=== PATIENT | female | born 1980 | race Caucasian/White ===

== ENCOUNTER 2024-04-13 10:45 | Inpatient (IN) | payer MEDICAID ==
[~2024-04-13] VITALS: Ht 162.6 cm; Wt 63.6 kg
[2024-04-13 12:54] LABS: ALANINE AMINOTRANSFERASE 33 U/L (12-78); ALBUMIN 2.4 G/DL (3.4-5.0); ALBUMIN/GLOBULIN RATIO 0.5 (1.1-1.5); ALKALINE PHOSPHATASE 96 IU/L (46-116); ANION GAP 10 (8-16); ASPARTATE AMINO TRANSFERASE 31 U/L (10-37); BILIRUBIN,TOTAL 0.5 MG/DL (0.1-1.0); BLOOD UREA NITROGEN 50 MG/DL (7-18); CALCIUM 8.6 MG/DL (8.5-10.1); CHLORIDE 93 MMOL/L (99-107); GLUCOSE 110 MG/DL (70-104); LIPASE 43 U/L (16-77); SODIUM 130 MMOL/L (135-145); TOTAL CARBON DIOXIDE 27.2 MMOL/L (24-32); TOTAL PROTEIN 7.7 G/DL (6.4-8.2); eCRCL 25 ML/MIN; eGFR 21 ML/MIN
[2024-04-13 12:57] LABS: BASOPHILS # (AUTO) 0.1 X10'3 (0-0.2); BASOPHILS % (AUTO) 0.3 % (0-1); EOSINOPHILS # (AUTO) 0.1 X10'3 (0-0.9); EOSINOPHILS % (AUTO) 0.3 % (0-6); HEMATOCRIT 33.4 % (35.0-45.0); HEMOGLOBIN 11.3 g/dl (12.0-16.0); LYMPHOCYTES # (AUTO) 1.1 X10'3 (1.1-4.8); LYMPHOCYTES % (AUTO) 5.2 % (21-51); MEAN CORPUSCULAR HEMOGLOBIN 30.7 PG (27.0-31.0); MEAN CORPUSCULAR HGB CONC 33.8 g/dL (33.0-36.5); MEAN PLATELET VOLUME 11.4 FL (7.4-10.4); MONOCYTES # (AUTO) 1.2 X10'3 (0-0.9); MONOCYTES % (AUTO) 5.5 % (2-12); NEUTROPHILS % (AUTO) 88.7 % (42-75); PLATELET COUNT 320 X10'3 (140-440); RED BLOOD COUNT 3.67 X10'6 (4.20-5.60); RED CELL DISTRIBUTION WIDTH 15.5 % (11.5-14.5); WHITE BLOOD COUNT 21.4 X10'3 (4.5-11.0)
[2024-04-13 12:58] LABS: POTASSIUM 2.9 MMOL/L (3.5-5.1)
[2024-04-13 13:13] LABS: PLATELET ESTIMATE NORMAL; TOTAL CELLS COUNTED 100
[2024-04-13] MEDS: potassium Cl 20 mEq SR tablet PO STA (13:13)
[2024-04-13] MEDS: normal saline 1000ml 1,000 ML IV ONE ×2 (13:41→18:09)
[2024-04-13] MEDS: morphine 4 MG/ML inj SYRINge IV ONE (13:51)
[2024-04-13] MEDS: ondansetron/PF 4mg/2ml inj IV ONE (13:56)
[2024-04-13 14:55] LABS: BETA HCG,QUANTITATIVE < 1.0 mIU/ml
[2024-04-13 15:04] LABS: BILIRUBIN,URINE NEGATIVE (Neg); CLARITY,URINE SLIGHTLY CLOUDY (Clear); COLOR,URINE YELLOW (Yellow); GLUCOSE, URINE NEGATIVE (Neg); KETONES,URINE NEGATIVE (Neg); LEUKOCYTE ESTERASE ,URINE SMALL (Neg); NITRITES, URINE NEGATIVE (Neg); OCCULT BLOOD,URINE TRACE-INTACT (Neg); PROTEIN,URINE TRACE mg/dl (Neg); UROBILINOGEN,URINE 0.2 E.U/dL (0.2-1.0)
[2024-04-13 15:09] LABS: UA COLLECTION TYPE NON-SPECIFIED
[2024-04-13 15:24] LABS: SQUAMOUS EPITHELIAL CELL,UR MANY /LPF (FEW)
[2024-04-13 15:25] LABS: WBC,URINE 50-100 /HPF (0-4)
[2024-04-13 15:26] LABS: BACTERIA,URINE 1+ /HPF (Neg); TRANSITIONAL EPI CELLS,URINE FEW /HPF
[2024-04-13] MEDS: acetaminophen 325mg tablet PO ONE (17:50)
[2024-04-13] MEDS: CefTRIAXone 2gm/D5W 50ml BAG 50 ML IV ONE (17:53)
[2024-04-13 18:18] LABS: ALANINE AMINOTRANSFERASE 28 U/L (12-78); ALBUMIN 2.4 G/DL (3.4-5.0); ALBUMIN/GLOBULIN RATIO 0.5 (1.1-1.5); ALKALINE PHOSPHATASE 117 IU/L (46-116); ANION GAP 13 (8-16); ASPARTATE AMINO TRANSFERASE 29 U/L (10-37); BILIRUBIN,TOTAL 0.5 MG/DL (0.1-1.0); BLOOD UREA NITROGEN 43 MG/DL (7-18); BUN/CREATININE RATIO 20.5 (10.0-20.0); CALCIUM 8.4 MG/DL (8.5-10.1); CHLORIDE 96 MMOL/L (99-107); GLUCOSE 92 MG/DL (70-104); POTASSIUM 3.2 MMOL/L (3.5-5.1); SODIUM 133 MMOL/L (135-145); TOTAL CARBON DIOXIDE 24.4 MMOL/L (24-32); TOTAL PROTEIN 7.7 G/DL (6.4-8.2); eCRCL 29 ML/MIN; eGFR 25 ML/MIN
[2024-04-13] MEDS: HYDROmorphone 1 mg/ml syringe IV ONE (18:22)
[2024-04-13] MEDS ORDERED: mag hydrox/Alum hydrox/simeth 30ml oral suspension PO PRN (20:10)
[2024-04-13] MEDS ORDERED: magnesium sulf-water 4G/100mL 100 ML IV PRN (20:10)
[2024-04-13] MEDS ORDERED: magnesium hydroxide 30ml (MOM) UD suspension PO PRN (20:10)
[2024-04-13] MEDS ORDERED: magnesium sulf-water 2g/50mL 50 ML IV PRN (20:10)
[2024-04-13] MEDS ORDERED: potassium Cl 40MEQ/1/2NS 520ml 520 ML IV PRN (20:10)
[2024-04-13] MEDS ORDERED: magnesium Cl slow-release 64mg tablet PO PRN (20:10)
[2024-04-13] MEDS ORDERED: GABA-530 (22:17)
[2024-04-13] MEDS ORDERED: MECL-226 (22:17)
[2024-04-13] MEDS: potassium Cl 20 mEq SR tablet PO PRN (22:27)
[2024-04-13] MEDS: normal saline 1000ml 1,000 ML IV SCH (22:28)
[2024-04-13 22:30] VITALS: BP 97/52; PULSE 70; RESP 18; TEMP 98.1; O2SAT 97
[2024-04-13] MEDS: ondansetron/PF 4mg/2ml inj IV PRN (22:53)
[2024-04-13] MEDS ORDERED: GABA-530 PO (23:14)
[2024-04-13] MEDS ORDERED: MECL-231 PO (23:19)
[2024-04-14] MEDS: levoFLOXACIN-Levaquin 750MG/D5 150 ML IV SCH (04:32)
[2024-04-14 06:43] LABS: BASOPHILS # (AUTO) 0.1 X10'3 (0-0.2); BASOPHILS % (AUTO) 0.3 % (0-1); EOSINOPHILS # (AUTO) 0.1 X10'3 (0-0.9); EOSINOPHILS % (AUTO) 0.3 % (0-6); HEMATOCRIT 32.5 % (35.0-45.0); HEMOGLOBIN 10.5 g/dl (12.0-16.0); LYMPHOCYTES # (AUTO) 0.7 X10'3 (1.1-4.8); MEAN CORPUSCULAR HEMOGLOBIN 30.7 PG (27.0-31.0); MEAN CORPUSCULAR HGB CONC 32.4 g/dL (33.0-36.5); MEAN CORPUSCULAR VOLUME 94.8 FL (78-98); MEAN PLATELET VOLUME 10.7 FL (7.4-10.4); MONOCYTES # (AUTO) 0.9 X10'3 (0-0.9); MONOCYTES % (AUTO) 5.4 % (2-12); NEUTROPHILS # (AUTO) 15.7 X10'3 (1.8-7.7); PLATELET COUNT 343 X10'3 (140-440); RED BLOOD COUNT 3.43 X10'6 (4.20-5.60); RED CELL DISTRIBUTION WIDTH 15.7 % (11.5-14.5); WHITE BLOOD COUNT 17.4 X10'3 (4.5-11.0)
[2024-04-14 06:55] LABS: ALBUMIN 1.9 G/DL (3.4-5.0); ANION GAP 13 (8-16); BLOOD UREA NITROGEN 27 MG/DL (7-18); BUN/CREATININE RATIO 17.8 (10.0-20.0); CALCIUM 8.2 MG/DL (8.5-10.1); CHLORIDE 101 MMOL/L (99-107); CREATININE 1.52 MG/DL (0.40-0.90); GLUCOSE 132 MG/DL (70-104); SODIUM 132 MMOL/L (135-145); TOTAL CARBON DIOXIDE 18.3 MMOL/L (24-32); eCRCL 40 ML/MIN; eGFR 37 ML/MIN
[2024-04-14] MEDS: K and/or MAG REPLACEMENT MC SCH (07:38)
[2024-04-14] MEDS: docusate sod 100mg capsule PO SCH (08:00)
[2024-04-14] MEDS: enoxaparin 40mg/0.4ml syringe SUBCUT SCH (08:00)
[2024-04-14] MEDS: acetaminophen 325mg tablet PO PRN (09:25)
[2024-04-14 12:00] VITALS: BP_SYST 103; BP_SYST 80; BP_SYST 89; BP_DIAS 53; BP_DIAS 56; BP_DIAS 69; PULSE 107; PULSE 74; PULSE 78
[2024-04-14 18:00] VITALS: BP 118/78; PULSE 83; RESP 18; TEMP 99.3; O2SAT 98
[2024-04-14 20:00] VITALS: RESP 18; O2SAT 98
[2024-04-14 22:00] VITALS: BP 116/66; PULSE 75; RESP 13; TEMP 97.5; O2SAT 96
[2024-04-15 06:00] VITALS: BP 115/68; PULSE 96; RESP 16; TEMP 98.9; O2SAT 96
[2024-04-15 06:46] LABS: BASOPHILS # (AUTO) 0.1 X10'3 (0-0.2); BASOPHILS % (AUTO) 0.7 % (0-1); EOSINOPHILS # (AUTO) 0.1 X10'3 (0-0.9); EOSINOPHILS % (AUTO) 0.5 % (0-6); HEMATOCRIT 30.6 % (35.0-45.0); HEMOGLOBIN 10.3 g/dl (12.0-16.0); LYMPHOCYTES # (AUTO) 1.4 X10'3 (1.1-4.8); LYMPHOCYTES % (AUTO) 8.9 % (21-51); MEAN CORPUSCULAR HEMOGLOBIN 31.2 PG (27.0-31.0); MEAN CORPUSCULAR HGB CONC 33.6 g/dL (33.0-36.5); MEAN CORPUSCULAR VOLUME 92.7 FL (78-98); MONOCYTES # (AUTO) 0.8 X10'3 (0-0.9); MONOCYTES % (AUTO) 5.3 % (2-12); NEUTROPHILS # (AUTO) 13.1 X10'3 (1.8-7.7); NEUTROPHILS % (AUTO) 84.6 % (42-75); PLATELET COUNT 485 X10'3 (140-440); RED CELL DISTRIBUTION WIDTH 15.8 % (11.5-14.5); WHITE BLOOD COUNT 15.5 X10'3 (4.5-11.0)
[2024-04-15 06:52] LABS: ALBUMIN 1.8 G/DL (3.4-5.0); ANION GAP 11 (8-16); BLOOD UREA NITROGEN 10 MG/DL (7-18); BUN/CREATININE RATIO 10.3 (10.0-20.0); CALCIUM 8.1 MG/DL (8.5-10.1); CHLORIDE 105 MMOL/L (99-107); CREATININE 0.97 MG/DL (0.40-0.90); GLUCOSE 110 MG/DL (70-104); POTASSIUM 3.6 MMOL/L (3.5-5.1); SODIUM 138 MMOL/L (135-145); TOTAL CARBON DIOXIDE 21.7 MMOL/L (24-32); eCRCL 63 ML/MIN; eGFR 62 ML/MIN
[2024-04-15 08:00] VITALS: RESP 16; O2SAT 96
[2024-04-15 10:00] VITALS: BP 94/60; PULSE 80; RESP 14; TEMP 98.7; O2SAT 98
[2024-04-15 10:34] LABS: HBSAG SCREEN Negative (Negative); HEP B CORE AB, IGM Negative (Negative); HEP B CORE AB, TOT Negative (Negative)
[2024-04-15] MEDS ORDERED: HYDROcodone/acetaminophen 5mg/325mg tablet PO PRN (14:15)
[2024-04-15] MEDS: HYDROcodone/acetaminophen 10/325mg tab PO PRN (15:31)
[2024-04-15 18:00] VITALS: BP 121/75; PULSE 68; RESP 14; TEMP 98; O2SAT 94
[2024-04-15] MEDS: diatr meglu/diatrizoate 30ml oral sol.-(3 dose) bottle PO SCH (21:05)
[2024-04-15 22:00] VITALS: BP 125/76; PULSE 60; RESP 13; TEMP 98; O2SAT 97
[2024-04-16 06:00] VITALS: BP 98/59; PULSE 86; RESP 14; TEMP 98.9; O2SAT 94
[2024-04-16 06:26] LABS: ALANINE AMINOTRANSFERASE 13 U/L (12-78); ALBUMIN 1.8 G/DL (3.4-5.0); ALBUMIN/GLOBULIN RATIO 0.4 (1.1-1.5); ALKALINE PHOSPHATASE 86 IU/L (46-116); ANION GAP 8 (8-16); ASPARTATE AMINO TRANSFERASE 14 U/L (10-37); BILIRUBIN,TOTAL 0.4 MG/DL (0.1-1.0); BLOOD UREA NITROGEN 3 MG/DL (7-18); BUN/CREATININE RATIO 3.5 (10.0-20.0); CALCIUM 8.1 MG/DL (8.5-10.1); CHLORIDE 107 MMOL/L (99-107); CREATININE 0.85 MG/DL (0.40-0.90); GLUCOSE 145 MG/DL (70-104); SODIUM 139 MMOL/L (135-145); TOTAL CARBON DIOXIDE 23.6 MMOL/L (24-32); TOTAL PROTEIN 6.1 G/DL (6.4-8.2); eCRCL 72 ML/MIN; eGFR 72 ML/MIN
[2024-04-16 06:28] LABS: BASOPHILS # (AUTO) 0.1 X10'3 (0-0.2); BASOPHILS % (AUTO) 0.7 % (0-1); EOSINOPHILS # (AUTO) 0.1 X10'3 (0-0.9); EOSINOPHILS % (AUTO) 0.9 % (0-6); HEMATOCRIT 30.6 % (35.0-45.0); HEMOGLOBIN 10.3 g/dl (12.0-16.0); LYMPHOCYTES # (AUTO) 1.3 X10'3 (1.1-4.8); LYMPHOCYTES % (AUTO) 9.5 % (21-51); MEAN CORPUSCULAR HEMOGLOBIN 31.2 PG (27.0-31.0); MEAN CORPUSCULAR HGB CONC 33.7 g/dL (33.0-36.5); MEAN CORPUSCULAR VOLUME 92.9 FL (78-98); MEAN PLATELET VOLUME 9.8 FL (7.4-10.4); MONOCYTES # (AUTO) 0.8 X10'3 (0-0.9); MONOCYTES % (AUTO) 5.9 % (2-12); PLATELET COUNT 488 X10'3 (140-440); RED BLOOD COUNT 3.29 X10'6 (4.20-5.60); RED CELL DISTRIBUTION WIDTH 15.9 % (11.5-14.5); WHITE BLOOD COUNT 13.3 X10'3 (4.5-11.0)
[2024-04-16] MEDS: potassium Cl 20 mEq SR tablet PO PRN (07:26)
[2024-04-16 08:00] VITALS: BP_SYST 104; BP_SYST 111; BP_SYST 94; BP_DIAS 66; BP_DIAS 76; BP_DIAS 86; PULSE 112; PULSE 67; PULSE 75; RESP 14; O2SAT 94
[2024-04-16] MEDS: pantoprazole 40 MG vial IV ONE (11:33)
[2024-04-16] MEDS ORDERED: dicyclomine 10 MG capsule PO ONE (13:15)
[2024-04-16 13:46] LABS: ALBUMIN 1.9 G/DL (3.4-5.0); ANION GAP 6 (8-16); BLOOD UREA NITROGEN 2 MG/DL (7-18); BUN/CREATININE RATIO 2.4 (10.0-20.0); CALCIUM 8.2 MG/DL (8.5-10.1); CHLORIDE 106 MMOL/L (99-107); CREATININE 0.85 MG/DL (0.40-0.90); GLUCOSE 104 MG/DL (70-104); POTASSIUM 4.1 MMOL/L (3.5-5.1); SODIUM 139 MMOL/L (135-145); TOTAL CARBON DIOXIDE 27.1 MMOL/L (24-32); eCRCL 72 ML/MIN; eGFR 72 ML/MIN
[2024-04-16] MEDS ORDERED: LEVO750T68 PO (15:08)
[2024-04-16] MEDS ORDERED: PANT40TA54 PO (15:39)
[2024-04-17] MEDS ORDERED: pantoprazole 40 MG vial IV SCH (08:00)
== END 2024-04-16 16:15 | disposition home or self-care (01) | DRG 720 ==
LOC: ER 10:47 → ED HOLD 20:13 → ORTHO 4S 22:20
PROVIDERS: ADMIT Internal Medicine Critical Care Medicine; ATTEND Family Medicine
PROC: BW211ZZ Computerized Tomography (CT Scan) of Abdomen and Pelvis using Low Osmolar Contrast (ICD-10-PCS; principal; 2024-04-16)
DX: A41.9 Sepsis, unspecified organism (principal); N17.9 Acute kidney failure, unspecified; E87.1 Hypo-osmolality and hyponatremia; E87.6 Hypokalemia; J18.9 Pneumonia, unspecified organism; Z20.822 Contact with and (suspected) exposure to COVID-19; N39.0 Urinary tract infection, site not specified; D64.9 Anemia, unspecified; E86.0 Dehydration; K21.9 Gastro-esophageal reflux disease without esophagitis
CPT/HCPCS: 36415; 71045; 74176; 76700; 80048; 80053; 81001; 83605; 83690; 83930; 84145; 84702; 85007; 85025; 86704; 86705; 87040; 87081; 87340; 87811; 96365; 96375; 97161; 97530; 99285; A6258; G0378; J0696; J1170; J1650; J1956; J2270; J2405; J2470; J7030; Q9963

== ENCOUNTER 2024-09-28 10:43 | Emergency (ER) | payer MEDICAID ==
[~2024-09-28] VITALS: Ht 162.6 cm; Wt 65.0 kg
[~2024-09-28 10:43] MED LIST: GABA-530 PO; MECL-231 PO; PANT40TA54 PO
[2024-09-28 10:58] VITALS: TEMP 98.9
[2024-09-28 12:39] LABS: BASOPHILS % (AUTO) 0.5 % (0-1); EOSINOPHILS % (AUTO) 0.1 % (0-6); HEMATOCRIT 44.6 % (35.0-45.0); HEMOGLOBIN 15.5 g/dl (12.0-16.0); LYMPHOCYTES # (AUTO) 0.9 X10'3 (1.1-4.8); LYMPHOCYTES % (AUTO) 9.7 % (21-51); MEAN CORPUSCULAR HEMOGLOBIN 33.6 PG (27.0-31.0); MEAN CORPUSCULAR HGB CONC 34.8 g/dL (33.0-36.5); MEAN CORPUSCULAR VOLUME 96.5 FL (78-98); MEAN PLATELET VOLUME 9.5 FL (7.4-10.4); MONOCYTES # (AUTO) 0.6 X10'3 (0-0.9); MONOCYTES % (AUTO) 6.2 % (2-12); NEUTROPHILS # (AUTO) 7.6 X10'3 (1.8-7.7); NEUTROPHILS % (AUTO) 83.5 % (42-75); PLATELET COUNT 141 X10'3 (140-440); RED BLOOD COUNT 4.62 X10'6 (4.20-5.60); WHITE BLOOD COUNT 9.1 X10'3 (4.5-11.0)
[2024-09-28] MEDS: normal saline 1000ml 1,000 ML IV ONE (12:59)
[2024-09-28] MEDS: LORazepam 2 mg/ml vial IV ONE (12:59)
[2024-09-28 13:37] VITALS: BP 138/85; PULSE 94; RESP 16; O2SAT 98
[2024-09-28 14:35] LABS: ALANINE AMINOTRANSFERASE 34 U/L (12-78); ALBUMIN 3.7 G/DL (3.4-5.0); ALBUMIN/GLOBULIN RATIO 0.7 (1.1-1.5); ALKALINE PHOSPHATASE 122 IU/L (46-116); ANION GAP 14 (8-16); ASPARTATE AMINO TRANSFERASE 56 U/L (10-37); BILIRUBIN,TOTAL 1.5 MG/DL (0.1-1.0); BLOOD UREA NITROGEN 3 MG/DL (7-18); BUN/CREATININE RATIO 3.4 (10.0-20.0); CHLORIDE 93 MMOL/L (99-107); CREATININE 0.87 MG/DL (0.40-0.90); GLUCOSE 138 MG/DL (70-104); LIPASE 44 U/L (16-77); POTASSIUM 3.3 MMOL/L (3.5-5.1); SODIUM 133 MMOL/L (135-145); TOTAL CARBON DIOXIDE 26.4 MMOL/L (24-32); TOTAL PROTEIN 9.2 G/DL (6.4-8.2); eCRCL 71 ML/MIN; eGFR 70 ML/MIN
[2024-09-28] MEDS: chlordiazePOXIDE 25mg capsule PO ONE (15:29)
== END 2024-09-28 15:37 | disposition home or self-care (01) ==
LOC: ER 10:44
DX: F10.239 Alcohol dependence with withdrawal, unspecified (principal); Y90.9 Presence of alcohol in blood, level not specified
CPT/HCPCS: 36415; 80053; 82948; 83690; 85025; 96361; 96374; 99283; J2060; J7030

== ENCOUNTER 2024-09-30 13:06 | Emergency (ER) | payer MEDICAID | END 2024-09-30 13:16 | disposition left against medical advice (07) | LOC: ER 13:07 | DX: Z53.21 Procedure and treatment not carried out due to patient leaving prior to being seen by health care provider (principal) ==